=== PATIENT | female | born 1960 | race Caucasian/White ===

== ENCOUNTER 2019-02-28 23:10 | Emergency (ER) | payer OTHER ==
[2019-02-28 23:25] VITALS: BMI 24.7
[2019-03-01] MEDS ORDERED: SODIUM CHLORIDE 500 ML IV STA (00:33)
[2019-03-01] MEDS ORDERED: ACETAMINOPHEN 325 MG TABLET (FP) PO ONE (00:36)
--- NOTE | 2019-03-01 00:40 | PDOC ---
History of Present Illness - General Chief Complaint: Pain Stated Complaint: CHEST PAIN Time Seen by Provider: 03/01/19 00:24 History Source: Patient Exam Limitations: No Limitations - History of Present Illness Initial Comments: Tere Lobato is a 59 yo F w a pmh of HTN who presents to the ER with chest pain. Patient states she has had left sided chest pain for a month but it got worse today. Patient states the pain is left sided, rated 4/10, described as both sharp and heavy, began a month ago and has been relatively steady, is not associated with any nausea, vomiting, or diaphoresis, and is not worsened with physical activity. Today She states she was walking around her nouse not doing much physical activity when the pain came on. Patient denies difficulty lying flat, denies chest pain w exertion, denies recent travel, denies SOB at any point, denies fevers, chills, or infections Allergies: None Past surgical history: Etopic (1994), ovarian cyst removal (1991), total hysterectomy (2003) PCP: Najma Montalvo Hx: Denies smoking, drinking, or other substance usage Past History - Past Medical History Allergies/Adverse Reactions: Allergies Allergy/AdvReac Type Severity Reaction Status Date / Time No Known Allergies Allergy Unverified 03/01/19 03:34 Home Medications: Ambulatory Orders Aspirin 81 mg PO DAILY 05/29/13 Atorvastatin Ca [Lipitor -] 10 mg PO HS 12/14/14 Amlodipine Besylate 5 mg PO DAILY 03/01/19 COPD: No HTN: Yes - Surgical History Orthopedic Surgery: Yes (spinal surgery) - Immunization History Immunization Up to Date: No - Suicide/Smoking/Psychosocial Hx Smoking History: Never smoked Have you smoked in the past 12 months: No Hx Alcohol Use: No Drug/Substance Use Hx: No Substance Use Type: None Review of Systems - Review of Systems Able to Perform ROS?: Yes Comments:: CONSTITUTIONAL: Absent: fever, no chills, no fatigue EYES: Absent: visual changes ENT: Absent: ear pain, no sore throat CARDIOVASCULAR: Present: Chest pain Absent: no palpitations RESPIRATORY: Absent: cough, no SOB GI: Absent: abdominal pain, no nausea, no vomiting, no constipation, no diarrhea GENITOURINARY: Absent: dysuria, no frequency, no hematuria MUSKULOSKELETAL: Absent: back pain, no arthralgia, no myalgia SKIN: Absent: rash NEURO: Absent: headache *Physical Exam - Vital Signs Last Vital Signs Temp Pulse Resp BP Pulse Ox 97.6 F 92 H 20 165/93 98 02/28/19 23:20 02/28/19 23:20 02/28/19 23:20 02/28/19 23:20 02/28/19 23:20 - Physical Exam Comments: GENERAL: Well-appearing, well-nourished. No apparent distress. HEENT: Normocephalic, atraumatic. PERRL, EOM intact. CARDIOVASCULAR: Normal S1, S2. Regular rate and rhythm. PULMONARY: No evidence of respiratory distress. Lungs clear to auscultation bilaterally. No wheezing, rales or rhonchi. ABDOMEN: Soft, non-distended, non-tender. EXTREMITIES: Normal ROM in all four extremities. No gross deformities. SKIN: Warm, dry. No rash NEUROLOGICAL: No focal neurological deficits. ED Treatment Course - LABORATORY CBC & Chemistry Diagram: 03/01/19 01:54 03/01/19 01:54 - RADIOLOGY Radiology Studies Ordered: Category Date Time Status CHEST X-RAY PORTABLE* [RAD] Stat Radiology 03/01/19 00:34 Ordered Medical Decision Making - Medical Decision Making Tere Lobato is a 59 yo F w a pmh of HTN who presents to the ER with chest pain. Patient states she has had left sided chest pain for a month but it got worse today. Patient states the pain is left sided, rated 4/10, described as both sharp and heavy, began a month ago and has been relatively steady, is not associated with any nausea, vomiting, or diaphoresis, and is not worsened with physical activity. Today She states she was walking around her nouse not doing much physical activity when the pain came on. Patient denies difficulty lying flat, denies chest pain w exertion, denies recent travel, denies SOB at any point, denies fevers, chills, or infections Vital Signs Temp Pulse Resp BP Pulse Ox 97.6 F 92 H 20 165/93 98 02/28/19 23:20 02/28/19 23:20 02/28/19 23:20 02/28/19 23:20 02/28/19 23:20 DDx IBNLT: ACS/IL, Pneumothorax, PNA, MSK chest pain, costochondritis, electrolyte/metabolic disturbance Plan: Labs, EKG, CXR, re-assess Labs: Unremarkable Trop negative. EKG: No new ischemic changes compared to 2014 CXR: Normal Re-assessment: Patient feels well and no longer has chest pain Disposition: Home with cardio and PCP FU *DC/Admit/Observation/Transfer Diagnosis at time of Disposition: Chest pain, atypical - Discharge Dispostion Disposition: HOME Condition at time of disposition: Improved Decision to Admit order: No - Referrals Referrals: Afshin Snyder MD [Primary Care Provider] - Augusto Mchugh MD [Staff Physician] - Ton Mackey MD [Staff Physician] - Toñito Farias MD [Staff Physician] - - Patient Instructions Printed Discharge Instructions: DI for Atypical Chest Pain Additional Instructions: Please call up the form [facility] [employer] [facility] we are referring you to and schedule an appointment in the next 3 to 5 days. Come back to the ER immediately if you experience any chest pain, nausea, vomiting, or any other new or worsening concerns. Print Language: PALESTINIAN - Post Discharge Activity
[2019-03-01] MEDS ORDERED: ACETAMINOPHEN 325 MG TABLET (FP) ONE (01:43)
--- NOTE | 2019-03-01 01:55 | PDOC ---
Attending Attestation - Resident Resident Name: Nicolas Sierra - ED Attending Attestation I have performed the following: I have examined & evaluated the patient, The case was reviewed & discussed with the resident, I agree w/resident's findings & plan - HPI HPI: 03/01/19 01:49 59y/o F HTN p/w 1 month of intermittent L arm pain, tonight occurred with <1m palpitations so presents for evaluation. sxs are nonexertional, has no exercise limitations. no chest pressure/pain, no cough/f/c, palpitations are sporadic and fleeting/self-resolving. no recent travel, no leg swelling or calf pain. no personal or family history of DVT/PE. had stress test several years ago that was normal currently asx - Physicial Exam PE: 03/01/19 01:55 vs as noted, HR 74 on my exam seated comfortably in stretcher, speaking full sentences s1s2 rrr, ctab abd soft no edema/calf ttp - Medical Decision Making 03/01/19 01:56 59y/o F with atypical L arm/chest sxs for one month. presentation not consistent with ACS or PE, HD stable here without red flags on history or PE. labs with trop x1 cxr, ekg reassess. likely d/c to f/u with Dr. Snyder this week to repeat stress test as outpt Heart Score/ECG Review - History History: Slightly suspicious - Electrocardiogram EKG: Normal - Age Age: 45-65 - Risk Factors Based on the list above the patient has:: 1-2 risk factors - Troponin Troponin: </= normal limit - Score Heart Score - Total: 2 #1 ECG reviewed & interpreted by me at: 23:17 General ECG Interpretation: Sinus Rhythm, Normal Rate (82), Normal Intervals ( qtc 448, borderline LVH, early strain pattern without acute st changes), No acute ischemic changes
[2019-03-01 02:18] LABS: BASO % 0.9 % (0-2.0); EOS % 1.3 % (0-4.5); HEMATOCRIT 42.9 % (32.4-45.2); HEMOGLOBIN 14.2 GM/dL (10.7-15.3); LYMPH % 22.2 % (8-40); MCH 32.8 pg (25.7-33.7); MCHC 33.2 g/dl (32.0-36.0); MEAN CELL VOLUME 98.9 fl (80-96); MEAN PLT VOLUME 10.3 fl (7.5-11.1); MONO % 6.1 % (3.8-10.2); NEUT % 69.5 % (42.8-82.8); PLATELET COUNT 151 K/MM3 (134-434); RBC 4.34 M/mm3 (3.60-5.2)
[2019-03-01 02:46] LABS: ALBUMIN 3.8 g/dl (3.4-5.0); BILIRUBIN,TOTAL 0.4 mg/dL (0.2-1); BLOOD UREA NITROGEN 13.6 mg/dL (7-18); CALCIUM 9.3 mg/dL (8.5-10.1); CREATININE 0.7 mg/dL (0.55-1.3); MAGNESIUM 2.2 mg/dL (1.8-2.4); POTASSIUM 4.6 mmol/L (3.5-5.1); TOT PROT 7.7 g/dl (6.4-8.2)
[2019-03-01] MEDS ORDERED: IBUPROFEN 600 MG TABLET (FP) PO ONE ×2 (03:05→03:13)
[2019-03-01 04:28] LABS: URINE APPEARANCE Clear; URINE BILIRUBIN Negative (NEGATIVE); URINE COLOR Yellow; URINE GLUCOSE (UA) Negative (NEGATIVE); URINE KETONE Negative (NEGATIVE); URINE LEUK ESTERASE Negative (NEGATIVE); URINE NITRITE Negative (NEGATIVE); URINE PROTEIN Negative (NEGATIVE); URINE UROBILINOGEN 0.2 mg/dL (0.2-1.0)
[2019-03-01 04:45] LABS: EPI CELLS 0.4 /HPF (0-5/HPF); URINE BACTERIA 3.7 /hpf (NEGATIVE); URINE RBC 1.6 /hpf (0-4); URINE WBC 0.5 /hpf (0-5)
[2019-03-01 05:09] VITALS: BP 134/90; PULSE 62; TEMP 97.8
--- NOTE | 2019-03-02 16:59 | EKG ---
Test Reason : Blood Pressure : / mmHG Vent. Rate : 057 BPM Atrial Rate : 057 BPM P-R Int : 146 ms QRS Dur : 086 ms QT Int : 440 ms P-R-T Axes : 034 026 049 degrees QTc Int : 428 ms SINUS BRADYCARDIA OTHERWISE NORMAL ECG NO PREVIOUS ECGS AVAILABLE Confirmed by YARON CHOWDARY MD ([id number]) on 03/02/2019 4:58:40 PM Referred By: Confirmed By:YARON CHOWDARY MD
--- NOTE | 2019-03-02 17:01 | EKG ---
Test Reason : Blood Pressure : / mmHG Vent. Rate : 082 BPM Atrial Rate : 082 BPM P-R Int : 130 ms QRS Dur : 084 ms QT Int : 384 ms P-R-T Axes : 043 032 040 degrees QTc Int : 448 ms NORMAL SINUS RHYTHM NONSPECIFIC ST ABNORMALITY ABNORMAL ECG NO PREVIOUS ECGS AVAILABLE Confirmed by YARON CHOWDARY MD ([id number]) on 03/02/2019 5:00:41 PM Referred By: Confirmed By:YARON CHOWDARY MD
== END 2019-03-01 03:50 | disposition home or self-care (01) ==
LOC: JER 23:10
PROC: 3E0337Z Introduction of Electrolytic and Water Balance Substance into Peripheral Vein, Percutaneous Approach (ICD-10-PCS; principal; 2019-02-28)
DX: I10 Essential (primary) hypertension (principal); R07.89 Other chest pain
CPT/HCPCS: 36415; 71045-TC-FY; 80053; 81003; 83735; 84484; 85025; 93005; 93010; 96360; 99283-25

== ENCOUNTER 2019-09-03 10:40 | Emergency (ER) | payer OTHER ==
[2019-09-03 10:59] VITALS: BP 131/78; PULSE 89; TEMP 98.1; BMI 23.6
--- NOTE | 2019-09-03 12:15 | PDOC ---
History of Present Illness - General Chief Complaint: Cold Symptoms Stated Complaint: COLD SYMPTOMS Time Seen by Provider: 09/03/19 12:15 History Source: Patient - History of Present Illness Initial Comments: 09/03/19 12:33 Chief complaint: Cough and fever Patient is 59-year-old female with history of hypertension elevated cholesterol who is been having body aches. She also states she had fever yesterday today and cough that started yesterday. Patient was not [place] and returned on July. No other travel. No other contacts. No shortness of breath GENERAL/CONSTITUTIONAL: No fever, weakness. dizziness HEAD, EYES, EARS, NOSE AND THROAT: No change in vision. No ear pain or discharge. No sore throat. CARDIOVASCULAR: No chest pain RESPIRATORY: No shortness of breath, +cough GASTROINTESTINAL: No pain, nausea, vomiting, diarrhea or constipation GENITOURINARY: No dysuria MUSCULOSKELETAL: No neck or back pain SKIN: No rash NEUROLOGIC: No headache, vertigo, loss of consciousness, or loss of sensation. GENERAL: The patient is awake, alert, and fully oriented, in no acute distress. HEAD: Normal with no signs of trauma. EYES: Pupils equal, round and reactive to light, sclera anicteric, conjunctiva clear. ENT: pharynx: no erythema, no exudate, uvula midline NECK: supple CHEST: clear, slight wheeze with cough, nontender, rr ABD: soft, nontender BACK: no tenderness or signs of injury EXTREMITIES: Normal range of motion, no edema. NEUROLOGICAL: Normal speech, normal gait. SKIN: Warm, Dry Is this a multiple visit Asthma Patient?: No Past History - Past Medical History Allergies/Adverse Reactions: Allergies Allergy/AdvReac Type Severity Reaction Status Date / Time No Known Allergies Allergy Verified 09/03/19 10:55 Home Medications: Ambulatory Orders Aspirin 81 mg PO DAILY 05/29/13 Atorvastatin Ca [Lipitor -] 10 mg PO HS 12/14/14 Amlodipine Besylate 5 mg PO DAILY 03/01/19 Albuterol Sulfate Inhaler - [Ventolin HFA Inhaler -] 2 inh PO Q4H #1 inh 09/03/19 Pantoprazole Sodium [Protonix -] 40 mg PO BID 09/03/19 COPD: No HTN: Yes - Surgical History Orthopedic Surgery: Yes (spinal surgery) - Immunization History Immunization Up to Date: No - Psycho Social/Smoking Cessation Hx Smoking History: Never smoked Have you smoked in the past 12 months: No Hx Alcohol Use: No Drug/Substance Use Hx: No Substance Use Type: None *Physical Exam - Vital Signs Last Vital Signs Temp Pulse Resp BP Pulse Ox 98.1 F 89 18 131/78 98 09/03/19 10:57 09/03/19 10:57 09/03/19 10:57 09/03/19 10:57 09/03/19 10:57 Medical Decision Making - Medical Decision Making 09/03/19 13:08 Flu screen and chest x-ray are negative. Given the nature of the cough, will give albuterol inhaler and recommend patient follow-up with her doctor this week Discussed issues, findings, results, applicable medications and treatments and follow-up. All these were understood and all questions were answered Discharge - Discharge Information Problems reviewed: Yes Clinical Impression/Diagnosis: Cough Condition: Stable Disposition: HOME - Admission No - Additional Discharge Information Prescriptions: Albuterol Sulfate Inhaler - [Ventolin HFA Inhaler -] 2 inh PO Q4H #1 inh - Follow up/Referral Referrals: Afshin Snyder MD [Primary Care Provider] - - Patient Discharge Instructions Patient Printed Discharge Instructions: DI for Viral Upper Respiratory Infection -- Adult Additional Instructions: Drink 2-3 L of water daily Although you do not have asthma, you have some wheezing when you cough. You can use the albuterol inhaler, 2 puffs every 4 hours for wheezing Take Tylenol 650 mg every 4 hours or Motrin 600 mg every 6 hours for fever and pain Return to the nearest ER if short of breath, unable to swallow or feeling sicker Followup with your doctor in one to 2 days Beber 2-3 L de agua diariamente Aunque no tiene asma, tiene algunas sibilancias cuando tose. Puede usar el inhalador de albuterol, 2 inhalaciones cada 4 horas para sibilancias [place] Tylenol 650 mg cada 4 horas o Motrin 600 mg cada 6 horas para la fiebre y el dolor. Regrese a la chan de emergencias ms cercana si tiene dificultad para respirar, no puede tragar o se siente ms enfermo Seguimiento con apodaca mdico en [place] o dos calderón. - Post Discharge Activity
[2019-09-03] MEDS ORDERED: ACETAMINOPHEN 325 MG TABLET (FP) PO ONE (12:19)
[2019-09-03] MEDS ORDERED: ACETAMINOPHEN 325 MG TABLET (FP) ONE (12:20)
== END 2019-09-03 13:54 | disposition home or self-care (01) ==
LOC: JERFT 10:40
DX: R05 Cough (principal); I10 Essential (primary) hypertension
CPT/HCPCS: 71046-TC-FY; 87804; 99283-25

== ENCOUNTER 2021-07-13 04:30 | Day surgery (SDC) | payer OTHER ==
[2021-07-07 12:59] VITALS: BMI 23.8
[~2021-07-13 04:30] MED LIST: ACETAMINOPHEN 325 MG TABLET (FP) PO PRN; CYCLOPENTOLATE HCL 1% OPHTH SOLN 2 ML BOTTLE OP SCH; KETOROLAC TROMETHAMINE 0.5% EYE DROP 1 DROP DROPS OP SCH; OFLOXACIN 0.3% OPHTHALMIC SOLUTION 5 ML BOTTLE OP SCH; PHENYLEPHRINE 2.5% OPHTH SOLN 15 ML BOTTLE OP SCH; TROPICAMIDE 1% OPHTH SOLN 15 ML BOTTLE OP SCH
[2021-07-13] MEDS ORDERED: CYCLOPENTOLATE HCL 1% OPHTH SOLN 2 ML BOTTLE ONE ×2 (06:12→06:18)
[2021-07-13] MEDS ORDERED: KETOROLAC TROMETHAMINE 0.5% EYE DROP 1 DROP DROPS ONE ×2 (06:12→06:17)
[2021-07-13] MEDS ORDERED: TROPICAMIDE 1% OPHTH SOLN 15 ML BOTTLE ONE ×2 (06:12→06:17)
[2021-07-13] MEDS ORDERED: PHENYLEPHRINE 2.5% OPTHALMIC DROP BOTTLE ONE ×2 (06:12→06:18)
[2021-07-13] MEDS ORDERED: OFLOXACIN 0.3% OPHTHALMIC SOLUTION 5 ML BOTTLE ONE ×2 (06:12→06:17)
[2021-07-13] MEDS ORDERED: KETOROLAC TROMETHAMINE 0.5% EYE DROP 1 DROP DROPS OD ONE ×3 (06:25→06:35)
[2021-07-13] MEDS ORDERED: OFLOXACIN 0.3% OPHTHALMIC SOLUTION 5 ML BOTTLE OD ONE ×3 (06:25→06:35)
[2021-07-13] MEDS ORDERED: PHENYLEPHRINE 2.5% OPHTH SOLN 15 ML BOTTLE OD ONE ×3 (06:25→06:35)
[2021-07-13] MEDS ORDERED: TROPICAMIDE 1% OPHTH SOLN 15 ML BOTTLE OD ONE ×3 (06:25→06:35)
[2021-07-13] MEDS ORDERED: CYCLOPENTOLATE HCL 1% OPHTH SOLN 2 ML BOTTLE OD ONE ×3 (06:25→06:35)
[2021-07-13] MEDS ORDERED: CHONDROITIN SU A/HYALUR SOD 1 KIT ONE (07:12)
[2021-07-13] MEDS ORDERED: GLYCOPYRROLATE 0.2 MG/1 ML VIAL ONE (07:28)
[2021-07-13] MEDS ORDERED: MIDAZOLAM HCL 2 MG/2 ML SINGLE DOSE VIAL ONE (07:28)
[2021-07-13] MEDS ORDERED: LIDOCAINE HCL/PF 1% SDV 5ML VIAL ONE (07:29)
[2021-07-13] MEDS ORDERED: VANCOMYCIN 500 MG VIAL (RESTRICTED TO ID ONLY) ONE (07:33)
[2021-07-13] MEDS ORDERED: EPINEPHrine/PF 1 MG/1 ML (1:1,000) AMPULE ONE (07:33)
[2021-07-13] MEDS ORDERED: POVIDONE-IODINE 5% OPHTHALMIC PREP 30 ML SOLUTION ONE (08:12)
[2021-07-13] MEDS ORDERED: TETRACAINE 0.5% OPHTH SOLN 2 ML BOTTLE ONE (08:12)
[2021-07-13] MEDS ORDERED: WATER FOR INJ,STERILE 10 ML ONE (08:12)
[2021-07-13] MEDS ORDERED: TETRACAINE 0.5% HCL 0.6ML DROPPER.BOTTLE OD ONE (08:22)
[2021-07-13] MEDS ORDERED: POVIDONE-IODINE 5% OPHTHALMIC PREP 30 ML SOLUTION OD ONE (08:23)
[2021-07-13] MEDS ORDERED: LIDOCAINE HCL 1% PRESERVATIVE FREE - 30ML VIAL INF ONE (08:28)
[2021-07-13] MEDS ORDERED: BSS (NA/CA/MG/K) BALANCED SALT SOLUTION OPHTH SOLN 15 ML BOTTLE IO ONE (08:29)
[2021-07-13] MEDS ORDERED: CHONDROITIN SU A/HYALUR SOD 1 KIT IO ONE (08:30)
[2021-07-13] MEDS ORDERED: EPINEPHrine/PF 1 MG/1 ML (1:1,000) AMPULE IO ONE (08:32)
[2021-07-13 09:06] VITALS: PULSE 80
[2021-07-13 12:10] VITALS: BP 112/70; TEMP 98
== END 2021-07-13 11:55 | disposition home or self-care (01) ==
LOC: JASU-SURG 04:30
PROVIDERS: ATTEND Ophthalmology
PROC: 08RJ3JZ Replacement of Right Lens with Synthetic Substitute, Percutaneous Approach (ICD-10-PCS; principal; 2021-07-13 08:00)
DX: H26.9 Unspecified cataract (principal)

== ENCOUNTER 2021-07-27 04:41 | Day surgery (SDC) | payer OTHER ==
[2021-07-25 10:53] VITALS: BMI 23.8
[~2021-07-27 04:41] MED LIST changes: -CYCLOPENTOLATE HCL 1% OPHTH SOLN 2 ML BOTTLE OP SCH; -KETOROLAC TROMETHAMINE 0.5% EYE DROP 1 DROP DROPS OP SCH; -OFLOXACIN 0.3% OPHTHALMIC SOLUTION 5 ML BOTTLE OP SCH; -PHENYLEPHRINE 2.5% OPHTH SOLN 15 ML BOTTLE OP SCH; -TROPICAMIDE 1% OPHTH SOLN 15 ML BOTTLE OP SCH
[2021-07-27] MEDS ORDERED: POVIDONE-IODINE 5% OPHTHALMIC PREP 30 ML SOLUTION ONE (07:27)
[2021-07-27] MEDS ORDERED: LIDOCAINE HCL/PF 1% SDV 5ML VIAL ONE (07:27)
[2021-07-27] MEDS ORDERED: TETRACAINE 0.5% OPHTH SOLN 2 ML BOTTLE ONE (07:27)
[2021-07-27] MEDS ORDERED: OFLOXACIN 0.3% OPHTHALMIC SOLUTION 5 ML BOTTLE ONE (10:14)
[2021-07-27] MEDS ORDERED: TROPICAMIDE 1% OPHTH SOLN 15 ML BOTTLE ONE (10:14)
[2021-07-27] MEDS ORDERED: CYCLOPENTOLATE HCL 1% OPHTH SOLN 2 ML BOTTLE ONE (10:14)
[2021-07-27] MEDS ORDERED: KETOROLAC TROMETHAMINE 0.5% EYE DROP 1 DROP DROPS ONE (10:14)
[2021-07-27] MEDS ORDERED: PHENYLEPHRINE 2.5% OPTHALMIC DROP BOTTLE ONE (10:15)
[2021-07-27] MEDS: CYCLOPENTOLATE HCL 1% OPHTH SOLN 2 ML BOTTLE OP SCH ×3 (10:30→10:51)
[2021-07-27] MEDS: KETOROLAC TROMETHAMINE 0.5% EYE DROP 1 DROP DROPS OP SCH ×3 (10:30→10:51)
[2021-07-27] MEDS: TROPICAMIDE 1% OPHTH SOLN 15 ML BOTTLE OP SCH ×3 (10:30→10:51)
[2021-07-27] MEDS: PHENYLEPHRINE 2.5% OPHTH SOLN 15 ML BOTTLE OP SCH ×3 (10:30→10:51)
[2021-07-27] MEDS: OFLOXACIN 0.3% OPHTHALMIC SOLUTION 5 ML BOTTLE OP SCH ×3 (10:30→10:51)
[2021-07-27] MEDS ORDERED: KETOROLAC TROMETHAMINE 30 MG/1 ML VIAL ONE (11:34)
[2021-07-27] MEDS ORDERED: MIDAZOLAM HCL 2 MG/2 ML SINGLE DOSE VIAL ONE (11:34)
[2021-07-27] MEDS ORDERED: TETRACAINE 0.5% OPHTH SOLN 2 ML BOTTLE TP ONE (11:38)
[2021-07-27] MEDS ORDERED: POVIDONE-IODINE 5% OPHTHALMIC PREP 30 ML SOLUTION OS ONE (11:43)
[2021-07-27] MEDS ORDERED: BSS (NA/CA/MG/K) BALANCED SALT SOLUTION OPHTH SOLN 15 ML BOTTLE OS ONE (11:50)
[2021-07-27] MEDS ORDERED: CHONDROITIN SU A/HYALUR SOD 1 KIT IO ONE (11:51)
[2021-07-27] MEDS ORDERED: LIDOCAINE HCL 1% PRESERVATIVE FREE - 30ML VIAL IO ONE (11:51)
[2021-07-27] MEDS ORDERED: EPINEPHrine/PF 1 MG/1 ML (1:1,000) AMPULE SQ ONE (11:56)
[2021-07-27] MEDS ORDERED: ACETAMINOPHEN 325 MG TABLET (FP) ONE (12:54)
[2021-07-27 13:00] VITALS: BP 121/63; PULSE 61; TEMP 98
== END 2021-07-27 13:37 | disposition home or self-care (01) ==
LOC: JASU-SURG 04:41
PROVIDERS: ATTEND Ophthalmology
PROC: 08RK3JZ Replacement of Left Lens with Synthetic Substitute, Percutaneous Approach (ICD-10-PCS; principal; 2021-07-27 11:00)
DX: H26.9 Unspecified cataract (principal)

== ENCOUNTER 2023-09-27 18:56 | Emergency (ER) | payer OTHER ==
[2023-09-27 20:14] VITALS: RESP 19; BMI 23.8
[2023-09-27] MEDS: ACETAMINOPHEN 1000 MG/100 ML BAG IVPB ONE (20:28)
[2023-09-27] MEDS ORDERED: ACETAMINOPHEN INJECTION 100 ML IVPB ONE (20:30)
[2023-09-27 20:40] LABS: URINE APPEARANCE CLEAR; URINE BILIRUBIN NEGATIVE (NEGATIVE); URINE COLOR YELLOW; URINE GLUCOSE (UA) NEGATIVE (NEGATIVE); URINE KETONE TRACE (NEGATIVE); URINE LEUK ESTERASE NEGATIVE (NEGATIVE); URINE NITRITE NEGATIVE (NEGATIVE); URINE PROTEIN NEGATIVE (NEGATIVE); URINE UROBILINOGEN 0.2 mg/dL (0.2-1.0)
[2023-09-27 20:50] LABS: INR 1.12 (0.83-1.09)
[2023-09-27 20:52] LABS: ACTIVATED PTT 18.4 SECONDS (25.2-36.5)
[2023-09-27 20:59] LABS: POTASSIUM 4.8 mmol/L (3.5-5.1)
[2023-09-27 21:01] LABS: CALCIUM 9.7 mg/dL (8.5-10.1)
[2023-09-27 21:02] LABS: ALBUMIN 3.7 g/dl (3.4-5.0)
[2023-09-27 21:05] LABS: CREATININE 0.7 mg/dL (0.55-1.3)
[2023-09-27 21:07] LABS: BILIRUBIN,TOTAL 0.9 mg/dL (0.2-1); TOT PROT 7.7 g/dl (6.4-8.2)
[2023-09-27 21:12] LABS: VENOUS O2 SATURATION 62.8 % (70-80); VENOUS PCO2 39.5 mmHg (38-52); VENOUS PH 7.425 (7.310-7.410)
[2023-09-27 21:31] VITALS: TEMP 98.7
[2023-09-27] MEDS ORDERED: levETIRAcetam 500 MG/5 ML INJECTION VIAL IVPB ONE ×2 (21:32→21:33)
[2023-09-27] MEDS: levETIRAcetam 500 MG/5 ML INJECTION VIAL IVPB ONE (21:43)
[2023-09-27 21:57] VITALS: BP 127/89; PULSE 69
== END 2023-09-27 22:06 | disposition short-term general hospital (02) ==
LOC: JER 18:56
PROC: 3E033NZ Introduction of Analgesics, Hypnotics, Sedatives into Peripheral Vein, Percutaneous Approach (ICD-10-PCS; principal; 2023-09-27)
PROC: 3E030GC Introduction of Other Therapeutic Substance into Peripheral Vein, Open Approach (ICD-10-PCS; 2023-09-27)
DX: R41.82 Altered mental status, unspecified (principal); R50.9 Fever, unspecified; R53.83 Other fatigue; Z20.822 Contact with and (suspected) exposure to COVID-19
CPT/HCPCS: 0241U-QW; 36415; 70450-TC; 70496-TC; 70498-TC; 71045-TC-FY; 80053; 81003; 82803; 82962; 83605; 84484; 85610; 85730; 86850; 86900; 86901; 87040; 87086; 93005; 93010; 96374; 96375; 99285-25; J0131